=== PATIENT | female | born 1950 | race Caucasian/White ===

== ENCOUNTER 2018-10-02 14:17 | Emergency (ER) | payer MEDICARE, OTHER, SELFPAY ==
[2018-10-02 14:19] VITALS: BP 161/84; PULSE 99; RESP 16; TEMP 36.3; O2SAT 99; BMI 39.0
--- NOTE | 2018-10-02 14:53 | ED.DEP ---
ED Disposition - Plan for ED Patient: Chief Complaint: Med Refill Instructions: Med Refill Prescriptions: Esomeprazole Mag Trihydrate [Nexium] 40 mg PO DAILY #30 capsule Referrals: [facility] Doctor,Out of [Primary Care Provider] -
--- NOTE | 2018-10-02 15:01 | ED.DCSUM_ITS ---
- ER Visit Summary Date of Service: 10/02/18 Chief Complaint: Ran out of medication History of Present Illness: The patient is a 68 F presenting requesting medication refill. Patient is from out of [facility]. She is here visiting her great granddaughter who recently had a baby. She ran out of her Nexium today. She has been on Nexium for the past 20 years. She called her primary care physician and he is [place] and she is unable to get a prescription. She denies any complaints at this time. Physical Examination: Vitals are stable. Patient is afebrile. Alert no acute distress. HEENT exam is unremarkable. Neck is supple. Lungs are clear and equal bilaterally. Heart is regular rate and rhythm. Abdomen is soft nontender nondistended. Extremities are unremarkable. Skin is warm and dry. Remainder of exam is unremarkable. Emergency Department Course and Treatment: Patient is given a prescription for Nexium. She is advised to follow-up with her primary care physician. Advised return to ED if worsening complaints. Disposition: Discharge home Impression: Medication refill This note was generated with [employer] dictation software. It may contain incorrect words, spelling, and punctuation that were not noted in review of the chart prior to signing ED Disposition - Plan for ED Patient: Chief Complaint: Med Refill Instructions: Med Refill Prescriptions: Esomeprazole Mag Trihydrate [Nexium] 40 mg PO DAILY #30 capsule Referrals: [facility] Doctor,Out of [Primary Care Provider] -
== END 2018-10-02 15:15 | disposition home or self-care (01) ==
PROVIDERS: Emergency Provider Emergency Medicine
DX: K21.9 Gastro-esophageal reflux disease without esophagitis (principal); Z76.0 Encounter for issue of repeat prescription
CPT/HCPCS: 99282